=== PATIENT | female | born 1960 | race Hispanic/Latino ===

== ENCOUNTER 2023-06-15 12:22 | Outpatient (CLI) | payer OTHER ==
[~2023-06-15 12:22] MED LIST: Magnevist 469MG/ML 20 ML VIAL ONE
== END 2023-06-15 12:23 | disposition home or self-care (01) ==
LOC: CSHMRI 12:22
PROVIDERS: ATTEND Radiology Radiation Oncology
DX: C22.7 Other specified carcinomas of liver (principal)
CPT/HCPCS: 74183